=== PATIENT | female | born 1930 | race Caucasian/White ===

== ENCOUNTER 2017-10-12 10:59 | Emergency (ER) | payer MEDICARE, MEDICAID ==
[~2017-10-12] VITALS: Ht 160 cm; Wt 81.6 kg
[~2017-10-12 10:59] MED LIST: AMLO5TAB2 PO; AMYL1CAP58 PO; ASPI81TA31 PO; BUPR300T54 PO; CALC-261 PO; CHOL20004 PO; CLON0.1T PO; DARI15TA PO; DOCU100T2 PO; FEBU40TA PO; FOLI1TAB16 PO; MAGN400T6 PO; METF500T6 PO; MULT1CAP34 PO; NEBI10TA2 PO; PANT40TA4 PO; RED RICE PO; VALS320T2 PO
--- NOTE | 2017-10-12 11:03 | NUR ---
Dr Ruby at the bedside [facility].
--- NOTE | 2017-10-12 11:33 | NUR ---
Patient discharged to home in stable conditon. Written and verbal after care instructions given. Patient verbalizes understanding of instructions. Pt left ER w/ steady gait accompained by family.
[2017-10-12 11:35] VITALS: BP 149/66
== END 2017-10-12 11:41 | disposition home or self-care (01) ==
LOC: ER 10:59
DX: L03.115 Cellulitis of right lower limb (principal); I10 Essential (primary) hypertension; K21.9 Gastro-esophageal reflux disease without esophagitis; E11.9 Type 2 diabetes mellitus without complications; Z88.0 Allergy status to penicillin; Z88.5 Allergy status to narcotic agent
CPT/HCPCS: 99283; A4663

== ENCOUNTER 2017-10-17 21:11 | Inpatient (IN) | payer MEDICARE, MEDICAID ==
[~2017-10-17] VITALS: Ht 165.1 cm; Wt 84.8 kg
[~2017-10-17 21:11] MED LIST changes: -AMLO5TAB2 PO; +AMLO5TAB7 PO; +METF-440 PO; -METF500T6 PO
[2017-10-17] MEDS ORDERED: ACETAMINOPHEN ES 500 MG TABLET PO ONE (21:45)
[2017-10-17] MEDS ORDERED: IV NORMAL SALINE 500 ML BAG IV ONE (21:45)
[2017-10-17] MEDS ORDERED: ACETAMINOPHEN ES 500 MG TABLET ONE (22:18)
[2017-10-17 22:19] LABS: BASOPHILS % (AUTO) 0.8 % (0.0-2.0); EOSINOPHILS # (AUTO) 0.1 K/uL (0.0-0.7); EOSINOPHILS % (AUTO) 2.3 % (0.0-7.0); HEMOGLOBIN 10.7 g/dL (10.9-14.3); LYMPHOCYTES # (AUTO) 0.4 K/uL (20.0-40.0); LYMPHOCYTES % (AUTO) 13.2 % (20.5-51.5); MEAN CORPUSCULAR HEMOGLOBIN 32.6 uug (24.7-32.8); MEAN CORPUSCULAR HGB CONC 35 g/dL (32.3-35.6); MEAN CORPUSCULAR VOLUME 94.3 fL (75.5-95.3); MONOCYTES # (AUTO) 0.6 K/uL (2.0-10.0); MONOCYTES % (AUTO) 21.2 % (0.0-11.0); NEUTROPHILS # (AUTO) 1.8 K/uL (1.8-8.9); NEUTROPHILS % (AUTO) 62.5 % (38.5-71.5); PLATELET COUNT (AUTO) 157 K/uL (179-408); RED BLOOD CELL COUNT(AUTO) 3.29 MIL/uL (3.63-4.92); WHITE BLOOD COUNT (AUTO) 2.9 K/uL (3.8-11.8)
[2017-10-17 22:36] LABS: CARBON DIOXIDE 22 mmol/L (21-32); CHLORIDE 98 mmol/L (98-107); CREATININE 2.2 mg/dL (0.6-1.3); GLUCOSE 94 mg/dL (74-106); POTASSIUM 4.5 mmol/L (3.5-5.1); UREA NITROGEN, BLOOD 28 mg/dL (7-18)
[2017-10-17 22:41] LABS: ALANINE AMINOTRANSFERASE 27 U/L (14-59); ALKALINE PHOSPHATASE 47 U/L (50-136); ASPARTATE AMINOTRANSFERASE 28 U/L (15-37); BILIRUBIN,DIRECT 0.2 mg/dL (0.0-0.2); BILIRUBIN,TOTAL 0.5 mg/dL (0.2-1.0); TOTAL PROTEIN, SERUM 6.6 g/dL (6.4-8.2)
[2017-10-17 22:51] LABS: BAND % (MANUAL) 1 % (0-10); LYMPHOCYTES % (MANUAL) 23 % (20-40); MONOCYTES % (MANUAL) 8 % (2-10); NEUTROPHILS % (MANUAL) 68 % (42-75)
[2017-10-17 22:57] LABS: *BILIRUBIN,URIN NEGATIVE (NEGATIVE); *BLOOD, URINE Trace-lysed (NEGATIVE); *CLARITY,URINE SLIGHTLY CLOUDY (CLEAR); *COLOR,URINE YELLOW (YELLOW); *KETONES,URINE NEGATIVE (NEGATIVE); *PROTEIN,URINE TRACE (NEGATIVE); *UROBILINOGEN,URINE 0.2 E.U./dl (NORMAL); LEUKOCYTE ESTERASE ,URINE NEGATIVE (NEGATIVE); NITRITE, URINE NEGATIVE (NEGATIVE); PH,URINE 6.5 (5.0-8.0); UGLUCOSE NEGATIVE (NEGATIVE)
[2017-10-17 23:04] LABS: BACTERIA,URINE FEW /HPF (NONE SEEN); SQUAMOUS EPITHELIAL CELL,UR FEW /HPF (NONE SEEN); WBC,URINE 0-3 /HPF (0-3)
--- NOTE | 2017-10-17 23:20 | NUR ---
PT ACTIVELY VOMITING. MD MADE AWARE. ORDERS ZOFRAN 4MG
[2017-10-17] MEDS ORDERED: ONDANSETRON IV *ER 4 MG/2 ML VIAL IV ONE (23:30)
--- NOTE | 2017-10-17 23:42 | NUR ---
CALL PLACED TO [facility] FOR TELE ADMISSION
[2017-10-17] MEDS ORDERED: AMLODIPINE PO (23:51)
[2017-10-17] MEDS ORDERED: [UNRECOGNIZED DRUG - OTHER] PO (23:51)
[2017-10-17] MEDS ORDERED: ESOM40CA PO (23:51)
[2017-10-17] MEDS ORDERED: SIMV20TA6 PO (23:51)
[2017-10-17] MEDS ORDERED: LINA145C PO (23:51)
[2017-10-17] MEDS ORDERED: CEPH500T PO (23:51)
--- NOTE | 2017-10-18 00:02 | NUR ---
PT REPORTING NEW ONSET OF DYSPEPSIA. MADE AWARE.
[2017-10-18] MEDS ORDERED: MAG HYDROX/AL HYDROX/SIMETH 30 ML LIQUID UDC PO ONE (00:15)
--- NOTE | 2017-10-18 00:43 | NUR ---
REPORT GIVEN TO TELE NURSEGO
[2017-10-18] MEDS ORDERED: IV NS 1000 ML 1,000 ML IV PRN (00:54)
[2017-10-18] MEDS ORDERED: MAGNESIUM HYDROXIDE 30 ML LIQUID UDC PO PRN (01:00)
[2017-10-18] MEDS ORDERED: Z GUARD REMEDY PASTE 57 GM TUBE TOP PRN (01:00)
[2017-10-18] MEDS ORDERED: LINACLOTIDE 145 MCG PO PRN (01:15)
[2017-10-18] MEDS ORDERED: CLONIDINE HCL 0.1 MG TABLET PO SCH (01:15)
--- NOTE | 2017-10-18 01:30 | NUR ---
Pt. admitted to TELE[facility], under care of DARVIN ROSARIO Belongs List completed
[2017-10-18 01:48] VITALS: BP 102/34
[2017-10-18] MEDS: IV NS 1000 ML 1,000 ML IV PRN ×2 (02:20→20:55)
[2017-10-18 04:56] VITALS: BP 118/40
[2017-10-18 06:23] LABS: BASOPHILS % (AUTO) 0.5 % (0.0-2.0); EOSINOPHILS # (AUTO) 0.1 K/uL (0.0-0.7); EOSINOPHILS % (AUTO) 2.6 % (0.0-7.0); HEMATOCRIT 28.9 % (31.2-41.9); LYMPHOCYTES # (AUTO) 0.5 K/uL (20.0-40.0); LYMPHOCYTES % (AUTO) 22.9 % (20.5-51.5); MEAN CORPUSCULAR HEMOGLOBIN 32.7 uug (24.7-32.8); MEAN CORPUSCULAR HGB CONC 35 g/dL (32.3-35.6); MEAN CORPUSCULAR VOLUME 94.1 fL (75.5-95.3); MONOCYTES # (AUTO) 0.4 K/uL (2.0-10.0); MONOCYTES % (AUTO) 17.7 % (0.0-11.0); NEUTROPHILS # (AUTO) 1.3 K/uL (1.8-8.9); NEUTROPHILS % (AUTO) 56.3 % (38.5-71.5); PLATELET COUNT (AUTO) 144 K/uL (179-408); RED BLOOD CELL COUNT(AUTO) 3.07 MIL/uL (3.63-4.92); WHITE BLOOD COUNT (AUTO) 2.3 K/uL (3.8-11.8)
[2017-10-18 06:38] LABS: CARBON DIOXIDE 23 mmol/L (21-32); CHLORIDE 98 mmol/L (98-107); CHOLESTEROL 101 mg/dL (<200); GLUCOSE 97 mg/dL (74-106); HDL CHOLESTEROL 36 mg/dL (40-60); MAGNESIUM 1.8 mg/dL (1.8-2.4); PHOSPHOROUS 3.3 mg/dL (2.5-4.9); TRIGLYCERIDES 70 MG/DL (30-150); UREA NITROGEN, BLOOD 26 mg/dL (7-18)
[2017-10-18 06:45] LABS: THYROID STIMULATING HORMONE 0.537 mIU/mL (0.358-3.740)
--- NOTE | 2017-10-18 08:00 | NUR ---
Pt alert and oriented x3. Pt IV intact and patent. Shows no signs of acute distress. Pt verbalizes generalized weakness. Tele monitor shows sinus rhythm. Will continue to monitor.
[2017-10-18] MEDS ORDERED: OLMESARTAN PO SCH (09:00)
[2017-10-18] MEDS ORDERED: ESOMEPRAZOLE 40 MG PO SCH (09:00)
[2017-10-18] MEDS ORDERED: AMLODIPINE PO SCH (09:00)
[2017-10-18 09:39] LABS: EOSINOPHILS % (MANUAL) 2 % (0-8); LYMPHOCYTES % (MANUAL) 23 % (20-40); MONOCYTES % (MANUAL) 16 % (2-10); NEUTROPHILS % (MANUAL) 59 % (42-75)
[2017-10-18] MEDS: CIPROFLOXACIN HCL 250 MG TABLET PO SCH ×2 (10:15→16:25)
[2017-10-18] MEDS: PANTOPRAZOLE SODIUM 40 MG TABLET.DR PO SCH (10:15)
[2017-10-18] MEDS: ENOXAPARIN SODIUM 30 MG/0.3 ML DISP.SYRIN SQ SCH (10:16)
[2017-10-18] MEDS: ASPIRIN 81 MG TAB.CHEW PO SCH (10:16)
[2017-10-18] MEDS: FOLIC ACID 1 MG TABLET PO SCH (10:16)
[2017-10-18 11:18] VITALS: BP 122/37
[2017-10-18] MEDS: FEBUXOSTAT 40 MG PO SCH (11:46)
[2017-10-18] MEDS: AMLODIPINE 5 MG TABLET PO SCH (11:54)
[2017-10-18] MEDS: CREON 24000 UNIT PO SCH ×2 (11:55→16:25)
[2017-10-18] MEDS: LOSARTAN POTASSIUM 50 MG TABLET PO SCH (11:55)
[2017-10-18] MEDS: NEBIVOLOL HCL 10 MG PO SCH (11:56)
[2017-10-18 12:37] LABS: *BILIRUBIN,URIN NEGATIVE (NEGATIVE); *BLOOD, URINE Trace-lysed (NEGATIVE); *CLARITY,URINE CLEAR (CLEAR); *COLOR,URINE YELLOW (YELLOW); *KETONES,URINE NEGATIVE (NEGATIVE); *PROTEIN,URINE NEGATIVE (NEGATIVE); *UROBILINOGEN,URINE 0.2 E.U./dl (NORMAL); LEUKOCYTE ESTERASE ,URINE NEGATIVE (NEGATIVE); NITRITE, URINE NEGATIVE (NEGATIVE); UGLUCOSE NEGATIVE (NEGATIVE)
[2017-10-18 12:42] LABS: *CREATININE,URINE 48.2 mg/dL (30-125)
[2017-10-18 13:15] LABS: BACTERIA,URINE FEW /HPF (NONE SEEN); RBC,URINE 0-3 /HPF (0-3); SQUAMOUS EPITHELIAL CELL,UR FEW /HPF (NONE SEEN); WBC,URINE 0-3 /HPF (0-3)
[2017-10-18 15:09] VITALS: BP 111/51
[2017-10-18 19:58] VITALS: BP 130/51
[2017-10-18] MEDS: ACETAMINOPHEN 325 MG TABLET PO PRN (20:54)
[2017-10-18] MEDS ORDERED: DARIFENACIN 15 MG PO SCH (21:00)
[2017-10-18] MEDS ORDERED: SIMVASTATIN 20 MG TABLET PO SCH (21:00)
[2017-10-18] MEDS ORDERED: TEMAZEPAM 7.5 MG CAPSULE PO PRN (23:45)
[2017-10-19] MEDS: ACETAMINOPHEN 325 MG TABLET PO PRN (04:23)
[2017-10-19 04:34] VITALS: BP 137/40
--- NOTE | 2017-10-19 05:35 | NUR ---
RECEIVED PT AWAKE, ALERT, AND ORIENTED X4. FAMILY AT BEDSIDE. PT SHOWS NO SIGNS OF DISTRESS. PT IV INTACT AND PATENT. SAFETY AND COMFORT PROVIDED. WILL CONTINUE TO MONITOR.
[2017-10-19 06:08] LABS: BASOPHILS % (AUTO) 0.5 % (0.0-2.0); EOSINOPHILS # (AUTO) 0.1 K/uL (0.0-0.7); EOSINOPHILS % (AUTO) 3.2 % (0.0-7.0); HEMATOCRIT 29.2 % (31.2-41.9); HEMOGLOBIN 10.1 g/dL (10.9-14.3); LYMPHOCYTES # (AUTO) 0.6 K/uL (20.0-40.0); LYMPHOCYTES % (AUTO) 16.7 % (20.5-51.5); MEAN CORPUSCULAR HEMOGLOBIN 32.8 uug (24.7-32.8); MEAN CORPUSCULAR HGB CONC 35 g/dL (32.3-35.6); MEAN CORPUSCULAR VOLUME 94.4 fL (75.5-95.3); MONOCYTES # (AUTO) 0.4 K/uL (2.0-10.0); MONOCYTES % (AUTO) 9.5 % (0.0-11.0); NEUTROPHILS # (AUTO) 2.7 K/uL (1.8-8.9); NEUTROPHILS % (AUTO) 70.1 % (38.5-71.5); PLATELET COUNT (AUTO) 141 K/uL (179-408); RED BLOOD CELL COUNT(AUTO) 3.09 MIL/uL (3.63-4.92); WHITE BLOOD COUNT (AUTO) 3.9 K/uL (3.8-11.8)
[2017-10-19] MEDS: PANTOPRAZOLE SODIUM 40 MG TABLET.DR PO SCH (06:09)
[2017-10-19 06:27] LABS: ALANINE AMINOTRANSFERASE 27 U/L (14-59); ALKALINE PHOSPHATASE 41 U/L (50-136); ASPARTATE AMINOTRANSFERASE 38 U/L (15-37); BILIRUBIN,TOTAL 0.5 mg/dL (0.2-1.0); CARBON DIOXIDE 20 mmol/L (21-32); CHLORIDE 101 mmol/L (98-107); CHOLESTEROL 104 mg/dL (<200); CREATININE 1.9 mg/dL (0.6-1.3); GLUCOSE 103 mg/dL (74-106); HDL CHOLESTEROL 31 mg/dL (40-60); MAGNESIUM 1.7 mg/dL (1.8-2.4); PHOSPHOROUS 2.7 mg/dL (2.5-4.9); POTASSIUM 4.8 mmol/L (3.5-5.1); TOTAL PROTEIN, SERUM 5.8 g/dL (6.4-8.2); TRIGLYCERIDES 84 MG/DL (30-150); UREA NITROGEN, BLOOD 22 mg/dL (7-18)
--- NOTE | 2017-10-19 06:27 | NUR ---
PT SLEPT THROUGHOUT THE SHIFT. PT SHOWS NO SIGNS OF DISTRESS. PT IV INTACT AND PATENT. PRESCRIBED MEDICATION GIVEN AND PT TOLERATED IT WELL.PT FAMILY ASKING FOR A COPY OF THE LAB RESULT. TOLD THE FAMILY MEMBER THAT SHE CAN ASK THE DOCTOR FOR THE COPY AND THE DOCTOR WILL EXPLAIN IT.FAMILY UNDERSTAND.PT SON ASKED TO STAY FOR THE NIGHT. SON SIGNED THE PAPER FOR ALLOWING HIM TO STAY FOR THE NIGHT. PT HAD 100.8 TEMPERATURE. GAVE TYLENOL AND COOLING MEASURES. PUT ICE COMPRESS ON FOREHEAD AND ICE PACK ON THE UNDERARMS. PT RECENT TEMPERATURE IS 99.4 F .PT STABLE.SAFETY AND COMFORT PROVIDED. WILL ENDORSE ACCORDINGLY TO DAYSHIFT NURSE FOR CONTINUITY OF CARE.
[2017-10-19] MEDS ORDERED: ESOMEPRAZOLE 40 MG PO SCH (07:00)
[2017-10-19 09:19] LABS: *RHEUMATOID FACTOR SCREEN NEGATIVE (NEGATIVE)
[2017-10-19] MEDS: MEGESTROL ACETATE 20 MG TABLET PO SCH ×2 (09:48→17:07)
[2017-10-19] MEDS: CREON 24000 UNIT PO SCH ×3 (09:49→17:07)
[2017-10-19] MEDS: FEBUXOSTAT 40 MG PO SCH (09:49)
[2017-10-19] MEDS: ASPIRIN 81 MG TAB.CHEW PO SCH (09:49)
[2017-10-19] MEDS: NEBIVOLOL HCL 10 MG PO SCH (09:51)
[2017-10-19] MEDS: ENOXAPARIN SODIUM 30 MG/0.3 ML DISP.SYRIN SQ SCH (09:54)
[2017-10-19] MEDS: LOSARTAN POTASSIUM 50 MG TABLET PO SCH (09:59)
[2017-10-19] MEDS: AMLODIPINE 5 MG TABLET PO SCH (10:00)
[2017-10-19] MEDS: CIPROFLOXACIN HCL 250 MG TABLET PO SCH ×2 (10:02→17:07)
[2017-10-19] MEDS: IV NS 1000 ML 1,000 ML IV PRN (10:07)
[2017-10-19] MEDS: FOLIC ACID 1 MG TABLET PO SCH (10:25)
[2017-10-19 11:25] VITALS: BP 132/45
[2017-10-19] MEDS ORDERED: ESCITALOPRAM OXALATE 10 MG TABLET PO SCH (13:00)
[2017-10-19] MEDS ORDERED: MAGNESIUM SULFATE/D5W 100 ML IV SCH (14:15)
[2017-10-19 15:22] VITALS: BP 134/49
--- NOTE | 2017-10-19 18:20 | NUR ---
Pt left AMA with family. Pt and family aware of the consequences/risks involved as explained by Paul Thorpe. Pt stable and nad noted upon leaving the floor. Addendum: 10/19/17 at 1830 by TOÑO HEIN RN ANGELIC midline removed. All belongings reviewed and returned to the pt.
[2017-10-20 08:07] LABS: *IMMUNOGLOBULIN G, SERUM 1119 mg/dL (700-1600); CANCER ANTIGEN 15-3 12.3 U/mL (0.0-25.0); IMMUNOGLOBULIN A, SERUM 181 mg/dL (64-422); IMMUNOGLOBULIN M, SERUM 29 mg/dL (26-217)
[2017-10-20] MEDS ORDERED: DOCUSATE SODIUM 250 MG CAPSULE PO SCH (09:00)
[2017-10-20] MEDS ORDERED: FERROUS SULFATE 325 MG TABEC PO SCH (09:00)
[2017-10-20 13:06] LABS: A/G RATIO 1.1 (0.7-1.7); ALBUMIN 2.9 g/dL (2.9-4.4); ALPHA-1-GLOBULIN 0.2 g/dL (0.0-0.4); ALPHA-2-GLOBULIN 0.6 g/dL (0.4-1.0); BETA GLOBULIN 0.7 g/dL (0.7-1.3); GAMMA GLOBULIN 0.9 g/dL (0.4-1.8); GLOBULIN, TOTAL 2.6 g/dL (2.2-3.9); M-SPIKE Not Observed g/dL (Not Observed)
[2017-10-20 22:08] LABS: *ANTI-SCLERODERMA-70 AB <0.2 AI (0.0-0.9); *SJOGREN'S ANTI-SS-A <0.2 AI (0.0-0.9); *SJOGREN'S ANTI-SS-B <0.2 AI (0.0-0.9); *SMITH ANTIBODIES <0.2 AI (0.0-0.9); ANTI-DNA(DS) AB, QN 1 IU/mL (0-9)
== END 2017-10-19 18:15 | disposition left against medical advice (07) | DRG 683 ==
LOC: ER 21:13 → TELE 10-18 00:20 → MED 10-18 18:04
PROVIDERS: ADMIT Registered Nurse; ATTEND Internal Medicine
DX: N17.0 Acute kidney failure with tubular necrosis (principal); D61.818 Other pancytopenia; E87.1 Hypo-osmolality and hyponatremia; K92.1 Melena; E86.0 Dehydration; I10 Essential (primary) hypertension; E11.9 Type 2 diabetes mellitus without complications; E78.5 Hyperlipidemia, unspecified; F32.9 Major depressive disorder, single episode, unspecified; G47.33 Obstructive sleep apnea (adult) (pediatric); Z85.3 Personal history of malignant neoplasm of breast; Z86.73 Personal history of transient ischemic attack (TIA), and cerebral infarction without residual deficits; Z96.652 Presence of left artificial knee joint; K21.9 Gastro-esophageal reflux disease without esophagitis; M19.90 Unspecified osteoarthritis, unspecified site; E86.9 Volume depletion, unspecified; D64.9 Anemia, unspecified; Z79.84 Long term (current) use of oral hypoglycemic drugs; D72.821 Monocytosis (symptomatic)
CPT/HCPCS: 36415; 70030-TC; 71045; 82746; 82784; 83550; 83605; 83615; 83735; 84100; 84155; 84156; 84165; 84300; 84443; 85025; 85730; 86038; 86140; 86300; 86334; 86430; 87040; 87086; 87400; 93005; A4663; A9150; J1650; J3475; J7030